=== PATIENT | male | born 1995 | race Caucasian/White ===

== ENCOUNTER 2018-12-22 12:51 | Emergency (ER) | payer SELFPAY ==
--- NOTE | 2018-12-22 13:23 | EDPHY ---
H & P Stated Complaint: left rib pain Source: Patient Exam Limitations: No limitations - Personal History Current Tetanus/Diphtheria Vaccine: Yes Current Tetanus Diphtheria and Acellular Pertussis (TDAP): Yes - Medical/Surgical History Hx Asthma: No Hx Chronic Respiratory Disease: No Hx Diabetes: No Hx Cardiac Disease: No Hx Renal Disease: No Hx Cirrhosis: No Hx Alcoholism: No Hx HIV/AIDS: No Hx Splenectomy or Spleen Trauma: No - Social History Smoking Status: Current every day smoker Time Seen by Provider: 12/22/18 13:23 HPI/ROS: HPI: This is a 23-year-old male who presents with Chief Complaint: Left rib injury 12/11/2018 Location: Left anterior rib Quality: Injury Duration: 8 days ago Signs and Symptoms: No bleeding, no radiation, no numbness, no weakness, no tingling, no incontinence, no decreased range of motion, no swelling, + pain, no fever, no shortness of breath, no chest pain, no palpitations, no cough, no wheezing Timing: Acute, intermittent episodes Severity: Moderate Context: Patient reports that he was skateboarding approximately 8 days ago when he tripped and fell falling forward. He used his left arm to brace his fall. His left arm went into his left anterior lateral chest. Since that time he has had some left anterior lateral mid rib pain that worsens with taking a deep breath. He is a tobacco user and smokes marijuana almost daily. Denies fever, shortness of breath, wheezing, cough. Modifying Factors: No [id number] pain medications taken Comment: ROS: A comprehensive 10 system review of systems is otherwise negative aside from elements mentioned in the history of present illness. MEDICAL/SURGICAL/SOCIAL HISTORY: Medical history: Generally healthy. Does not take any regular medications. Surgical history: Denies Social history: Current every day tobacco smoker. Regular marijuana user. CONSTITUTIONAL: Thin, young adult white male, polite and cooperative, smells heavily of cannabis, awake and alert, no obvious distress HEENT: Atraumatic and normocephalic. NECK: supple, no midline tenderness, flexion 45 degrees, extension 45 degrees, right and left lateral flexion 45 degrees. No meningismus. Cardiovascular: Normal S1/S2, regular rate, regular rhythm, without murmur rub or gallop. PULMONARY/CHEST: Symmetrical and mild anterior mid rib reproducible tenderness- no ecchymosis. no crepitus. Clear to auscultation bilaterally. Good air movement. No accessory muscle usage. ABDOMEN: Soft, nondistended, nontender, no ecchymosis. EXTREMITIES: 2/2 pulses, strength 5/5, DIP/PIP/MCP flexion/extension intact with good light touch sensation. no deformities, no clubbing, no cyanosis or edema. NEUROLOGICAL: no focal neuro deficits. GCS 15. Light touch sensation intact. SKIN: Warm and dry, no erythema. no rash. Good capillary refill. (Karuna Mccollum) Constitutional: Initial Vital Signs Temperature (C) 38.1 C 12/22/18 12:54 Heart Rate 80 12/22/18 12:54 Respiratory Rate 20 12/22/18 12:54 Blood Pressure 126/86 H 12/22/18 12:54 O2 Sat (%) 98 12/22/18 12:54 O2 Delivery Mode Room Air Allergies/Adverse Reactions: No Known Allergies Allergy (Unverified 12/22/18 12:58) Home Medications: Medication Instructions Recorded Ibuprofen 12/22/18 Lidocaine [Lidoderm] 1 each TP Q12 PRN #6 adh..patch 12/22/18 Medical Decision Making - Diagnostics Imaging Results: Imaging Impressions Ribs w/Chest X-Ray 12/22/18 13:20 Impression: 1. Acute nondisplaced anterior left 7th rib fracture. 2. Clear lungs. No pneumothorax. ED Course/Re-evaluation: Vital signs reviewed and stable upon arrival. No hypoxia or tachycardia. X-ray my read shows no pneumothorax. +Acute nondisplaced anterior left 7th rib fracture. Lidoderm patch applied and prescription given for same No signs of neurovascular compromise/tenting of skin/compartment syndrome/ extremities and joints examined above and below area of concern and are neurovascularly intact. This patient was seen under the supervision of my secondary supervising physician. I evaluated care for this patient independently. (Karuna Mccollum) The patient was evaluated and managed by the physician blacksmith assistant. I have reviewed this chart and I agree with the findings and plan of care as documented , as indicated by my signature. I am the secondary supervising physician. ( Selena Bourgeois) Differential Diagnosis: Differential diagnosis includes but is not limited to rib contusion, rib fracture, reactive airway disease, intra-abdominal injury, pneumothorax. (Karuna Mccollum) - Data Points Medications Given: Discontinued Medications Miscellaneous Information (Patch Removal) 1 ea TD DAILY21 ABBI Stop: 06/20/19 20:59 Last Admin: 12/22/18 14:10 Dose: Not Given Miscellaneous Medication (Icy Hot Lidocaine/Menthol 4%/1% Patch) 1 patch TD EDNOW ONE Stop: 12/22/18 14:01 Last Admin: 12/22/18 14:09 Dose: 1 patch Departure - Departure Disposition: Home, Routine, Self-Care Clinical Impression: Contusion of rib on left side Qualifiers: Encounter type: initial encounter Qualified Code(s): S20.212A - Contusion of left front wall of thorax, initial encounter Left rib fracture Qualifiers: Encounter type: initial encounter Rib fracture type: single rib Fracture type: closed Qualified Code(s): S22.32XA - Fracture of one rib, left side, initial encounter for closed fracture Condition: Good Instructions: Rib Fracture (ED), Rib Contusion (ED) Additional Instructions: Take Tylenol 650 mg every 4 hours and/or Ibuprofen 600 mg every 8 hours with food as needed for pain. Apply Lidoderm patch every 12 hr as needed for pain. Apply ice for 30 minutes at a time; 2-3 times per day for the next 1-2 days. Follow up with PCP in 7-10 days if symptoms persist at which time they will evaluate and recommend with you if conservative management versus further imaging is indicated. Referrals: [facility],. [Clinic] - As per Instructions Prescriptions: Lidocaine [Lidoderm] 1 each TP Q12 PRN #6 adh..patch PRN Reason: Pain, Moderate
[2018-12-22] MEDS ORDERED: LIDOCAINE 4%/MENTHOL 1% PATCH TD ONE (14:00)
[2018-12-22 14:13] VITALS: BP 113/75
[2018-12-22] MEDS ORDERED: PATCH REMOVAL 1 EA PATCH TD SCH (21:00)
== END 2018-12-22 14:12 | disposition home or self-care (01) ==
DX: S22.32XA Fracture of one rib, left side, initial encounter for closed fracture (principal); S20.212A Contusion of left front wall of thorax, initial encounter; F12.90 Cannabis use, unspecified, uncomplicated; F17.200 Nicotine dependence, unspecified, uncomplicated; V00.131A Fall from skateboard, initial encounter; Y93.51 Activity, roller skating (inline) and skateboarding